=== PATIENT | female | born 1990 | race African-American/Black ===

== ENCOUNTER 2017-07-27 18:07 | Emergency (ER) | payer OTHER, MEDICAID, SELFPAY ==
[2017-07-27 18:10] VITALS: BP 145/85; PULSE 87; RESP 20; TEMP 37.1; O2SAT 100; BMI 46.0
--- NOTE | 2017-07-27 20:11 | ED_ITS ---
HPI - Burn/Smoke Inhalation General Chief complaint: Burn/Smoke Inhalation Stated complaint: BURN RIGHT FOOT Time Seen by Provider: 07/27/17 19:00 Source: patient Mode of arrival: ambulatory Limitations: no limitations History of Present Illness HPI Narrative: 27-year-old female here for evaluation the burn on the top of her right foot. Patient states that yesterday she spilled some hot grease from cooking on the top of her foot. She was wearing a sock at that time. States that afterwards she cleaned off the or oil. She did have some Silvadene cream and Neosporin cream at home that she put on top of it. She states that she has no pain actually some numbness when she is sitting and has her foot elevated however does have problems with walking. States that she had some swelling and redness surrounding the area over the past 6 hr. She states that the blister that formed over the area popped earlier today. Related Data Previous Rx's Medication Instructions Recorded etonogestrel-ethinyl estradiol 1 icr VAGINAL SEE INSTRUCTIONS #4 08/20/16 [NuvaRing] ea lamotrigine [Lamictal] 100 mg PO BID #60 tab 03/12/17 risperidone [Risperdal] 2 mg PO HS #30 tab 04/26/17 bupropion HCl 300 mg PO QDAY #30 tab 05/24/17 dextroamphetamine-amphetamine 10 mg PO QAM #30 cap 05/24/17 [Adderall XR] dextroamphetamine-amphetamine 10 mg PO QAM #30 cap 05/24/17 [Adderall XR] fluconazole 100 mg tablet 200 mg PO ONCE #2 tab 07/16/17 cephalexin [Keflex] 500 mg PO Q12H 7 Days #14 cap 07/27/17 hydrocodone-acetaminophen [Marshall] 1 tab PO Q4-6H PRN #10 tab 07/27/17 Allergies Allergy/AdvReac Type Severity Reaction Status Date / Time No Known Allergies Allergy Uncoded 05/29/17 12:57 Review of Systems Constitutional Denies chills, Denies fever(s), Denies lethargy and Denies weakness Musculoskeletal Comments: Burn to the top of the right foot Integumentary/Breasts Comments: Burn to the top of the right foot Neurologic Denies weakness Comments: Pain, tingling, numbness to her right foot depending on position Hematologic/Lymphatic Denies easy bruising [facility] Surgical History Status post delivery (06/04/07) Status post delivery (06/08/11) Status post delivery (09/10/14) Social History Smoking Status: Never smoker Exam Initial Vital Signs Initial Vital Signs: Vital Signs Temperature 98.7 F 07/27/17 18:10 Pulse Rate 87 07/27/17 18:10 Respiratory Rate 20 07/27/17 18:10 Blood Pressure 145/85 H 07/27/17 18:10 Pulse Oximetry 100 07/27/17 18:10 Const General: cooperative and well developed Nutritional Appearance: well nourished Orientation: alert, awake, oriented x3 and not confused Skin Other: Patient with a 6 cm x 3 cm burn to the top of the right foot that has a popped blister, white underneath. No deep structures seen. Has another 1 cm round blister just medial to this section. Also has redness and swelling over the entire dorsum of the right foot not including the toes. Tender to touch warm to touch. Neuro Other: Sensation intact to light touch right lower extremity Extrem Other: Right ankle unremarkable See skin section for description of burn on right foot Right toes unremarkable Course Orders Ordered: Discontinued Medications Ibuprofen (Advil) 800 mg PO NOW ONE Stop: 07/27/17 20:11 Last Admin: 07/27/17 20:13 Dose: 800 mg Silver Sulfadiazine (Silvadene) 1 applic TOP NOW ONE Stop: 07/27/17 20:14 Vital Signs - 8 hr 07/27/17 18:10 Temperature 98.7 F Pulse Rate 87 Respiratory Rate 20 Blood Pressure 145/85 H Pulse Oximetry 100 MDM - Burn/Smoke Inhalation MDM Narrative Medical decision making narrative: Patient with a less than 1% total body surface area burn to the top of the right foot. Patient is up-to-date on her tetanus. The burn was cleaned here in the emergency department and Silvadene was placed over top of it. Patient was given dressing supplies. The redness was outlined on the top of her foot. Will send home with pain medication and antibiotics. Patient was given return precautions. She will call her primary doctor on [place] for follow-up. She expressed understanding and agreement with plan Discharge Plan Departure Patient Disposition: Home, Self-Care Clinical Impression: Burn Instructions: How to Take Care of a Burn Activity Restrictions/Additional Instructions: Take all the medications as instructed. Call your primary doctor on Saturday for a follow-up. Keep the wound clean. You can shower in use open water like normal however do not soak her foot and anything. Change the dressings like we discussed. Return to the emergency department for any new symptoms, worsening pain, redness that extends outside of the line that we leticia here in the emergency department. Or any other new or worsening symptoms. Prescriptions: New hydrocodone-acetaminophen [Marshall] 5-325 mg tablet 1 tab PO Q4-6H PRN (Reason: pain) Qty: 10 RF: 0 cephalexin [Keflex] 500 mg capsule 500 mg PO Q12H 7 Days Qty: 14 RF: 0 No Action etonogestrel-ethinyl estradiol [NuvaRing] 1 EACH ring 1 icr Vaginal SEE INSTRUCTIONS Qty: 4 RF: 5 lamotrigine [Lamictal] 100 MG tablet 100 mg PO BID Qty: 60 RF: 3 risperidone [Risperdal] 2 MG tablet 2 mg PO HS Qty: 30 RF: 1 bupropion HCl 300 MG tablet extended release 24 hr 300 mg PO QDAY Qty: 30 RF: 1 dextroamphetamine-amphetamine [Adderall XR] 10 MG capsule,extended release 24hr 10 mg PO QAM Qty: 30 RF: 0 dextroamphetamine-amphetamine [Adderall XR] 10 MG capsule,extended release 24hr 10 mg PO QAM Qty: 30 RF: 0 fluconazole [Diflucan] 100 mg tablet 200 mg PO ONCE Qty: 2 RF: 0 Stand Alone Forms: Work/School Restrictions
[2017-07-27] MEDS: IBUPROFEN 400 MG TABLET 800 MG PO (20:13)
[2017-07-27] MEDS: SILVER SULFADIAZINE 1% CREAM 400 GM 1 APPLIC TOP (20:30)
[2017-07-27] MEDS: cephALEXin 250 MG CAPSULE 500 MG PO (20:31)
[2017-07-27] MEDS: HYDROCODONE/ACET 5/325 PREPACK 1 BOTTLE MISC (20:40)
[2017-07-27 20:42] VITALS: BP 138/70; PULSE 70; RESP 14; O2SAT 99
== END 2017-07-27 21:00 | disposition home or self-care (01) ==
PROVIDERS: Emergency Provider Emergency Medicine
DX: T25.021A Burn of unspecified degree of right foot, initial encounter (principal); T30.0 Burn of unspecified body region, unspecified degree; X10.2XXA Contact with fats and cooking oils, initial encounter
CPT/HCPCS: 16020; 99282; 99283

== ENCOUNTER → 2017-08-01 13:04 | Outpatient (CLI) | payer OTHER, SELFPAY ==
--- NOTE | 2017-08-01 | OV.WND_ITS ---
Progress Note Details Patient Name: Leandra Zhang Patient Number: [id number] PatientPatientDate: 08/01/2017 Clinician: Rema Alvarado Clinician Cosigner: Allison Enamorado Physician / Compressor Mechanic: Neymar Ferrell SUBJECTIVE Chief Complaint This information was obtained from the patient Burned foot one week ago July 25, 2017 while cooking, grease. Allergies NKDA HPI This information was obtained from the patient 08/01/17. Seen by Dr. Ferrell. The patient's new to our clinic and presents with a burn over the dorsum of the right foot that occurred 6 days ago when she spilled hot cooking oil. She was seen in the ER 3 days later and started on Keflex for cellulitis of the foot and she feels the pain and swelling have decreased since then. She's also allowed the foot to soak in the bath tub and she does not have a history of diabetes. Family History This information was obtained from the patient Cancer - No History, Diabetes - No History, Heart Disease - No History, Hereditary Spherocytosis - No History, Hypertension - No History, Kidney Disease - No History, Lung Disease - No History, Mental Illness - No History, Non-contributory - No History , None - No History, Other - No History, Seizures - No History, Stroke - No History, Thyroid Problems - No History, Tuberculosis - No History Social History This information was obtained from the patient Caffeine Use - every day, Children - 3, Illicit Drug Use - weed, Lives in - Home with spouse. Past Medical History This information was obtained from the patient, chart Patient has a medical history of: Bi-Polar Disorder Surgical History This information was obtained from the patient Patient has a surgical history of: Deliveries (2007,2011,2014) Complaints and Symptoms This information was obtained from the patient Patient complains of: General Notes: I have reviewed and concur with the Review of Systems and Past Family Social History documents completed by the clinician, I have reviewed and concur with the Wound Assessment document completed by the clinician Medications dextroamphetamine-amphetamine 10 mg tablet oral tablet oral once daily lamotrigine 100 mg tablet oral tablet oral twice daily fluconazole 200 mg tablet oral tablet oral once daily risperidone 2 mg tablet oral tablet oral take at bedtime Keflex 500 mg capsule oral capsule oral twice daily etonogestrel-ethinyl estradiol 0.12 mg -0.015 mg/24 hr vaginal ring vaginal ring vaginal hydrocodone 2.5 mg-acetaminophen 325 mg tablet oral tablet oral every 6 hours as needed bupropion HCl XL 300 mg 24 hr tablet, extended release oral tablet extended release 24 hr oral once daily OBJECTIVE Constitutional Vital signs reviewed and noted. Well developed. Alert. Clean appearing.. Height/ Length: 64 in (162.56 cm), Weight: 296.3 lbs (134.68 kgs), BMI: 50.9, Temperature: 96.8 ?F ( 36 ?C), Pulse: 82 bpm, Respiratory Rate: 18 breaths/min, Blood Pressure: 105/73 mmHg, Pulse Oximetry: 100 %. Ears, Nose, Mouth, and Throat: No clinically significant hearing loss on informal examination. Musculoskeletal: Right foot minimally swollen. Integumentary (Hair, Skin) Mild periwound erythema with warmth. Refer to appropriate clinician wound documentation for this visit; right dorsal foot burn extends to subcut with approx 50% covered with dry, yellow eschar; tender throughout upon debridement. Wound #1 Right, Dorsal Foot is an acute Full Thickness Burn, thermal and has received a status of Not Healed. Initial wound encounter measurements are 3.2cm length x 6.5cm width x 0.3cm depth, with an area of 20.8 sq cm and a volume of 6.24 cubic cm. No tunneling has been noted. No sinus tract has been noted. No undermining has been noted. There is a moderate amount of serous drainage noted which has no odor. The patient reports a wound pain of level 5/10. The wound margin is attached. Wound bed has No epithelialization, No eschar, Yes slough, Yes pink, firm granulation. The periwound skin texture is normal. The periwound skin moisture is normal. The periwound skin color is normal. The temperature of the periwound skin is Warm. Periwound skin presents with s/s of infection. Confirmation Description and Treatment Plan is: Signs and Symptoms Present. Local Pulse is Palpable. Neurological: Cranial nerves grossly intact with symmetric function normal by informal observation.. ASSESSMENT Active Problems ICD-10 (Encounter Diagnosis) T25.221D - Burn of second degree of right foot, subsequent encounter (Encounter Diagnosis) L03.115 - Cellulitis of right lower limb PROCEDURES Wound #1 Wound #1 (Burn, thermal) is located on the right, dorsal foot. A skin/ subcutaneous tissue level surgical debridement with a total area debrided of 20.8 sq cm was performed by Neymar Ferrell MD. Subcutaneous was removed along with devitalized tissue: exudate and slough. The following instrument(s) were used: curette, forceps, and scissors. Pain control was achieved using 4% Lido. A time out was conducted prior to the start of the procedure. No bleeding occurred. The procedure was tolerated well with a pain level of 8 throughout and a pain level of 2 following the procedure. Post Debridement Measurements: 3.2cm length x 6.5cm width x 0.3cm depth; with an area of 20.8 sq cm and a volume of 6.24 cubic cm; PLAN Wound Orders: Wound #1 Right, Dorsal Foot Cleanser Cleanse Wound: - With Normal Saline or distilled water. Dressings Pack wound: - Triple antibiotic ointment. Cover and secure with: - Foam. Change Dressing: - Daily. Follow-Up Appointments Return Appointment: - - Saturday, August 05 Scribing Attestation I attest, as the nurse, that I scribed these orders for the physician. I've reviewed the clinician's documentation and agree with the evaluation and plan as written. In addition the patient's burn demonstrates evidence of non-viable devitalized tissue which will continue to benefit from sharp debridement to help promote granulation and expedite healing. Also, I've taken a wound culture and will adjust antibiotics pending the culture results. She'll otherwise continue on Keflex to treat cellulitis of the right foot and abstain from soaking the foot. 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 Electronic Signature(s) Signed By: Date: Neymar Ferrell MD 08/02/2017 08:42:30 Entered By: Neymar Ferrell on 08/02/2017 08:39:11
== END ==
PROVIDERS: PCP Internal Medicine; Visit Provider Internal Medicine
DX: T25.221A Burn of second degree of right foot, initial encounter (principal); L03.115 Cellulitis of right lower limb
CPT/HCPCS: 16020; 87070; 87075; 87205; 99213

== ENCOUNTER → 2017-08-05 09:39 | Outpatient (CLI) | payer OTHER, MEDICAID, SELFPAY ==
--- NOTE | 2017-08-05 | OV.WND_ITS ---
Progress Note Details Patient Name: Leandra Zhang Patient Number: [id number] PatientPatientDate: 08/05/2017 Clinician: Ami Degroot Clinician Cosigner: Allison Enamorado Physician / Motor Equipment Captain: Neymar Ferrell SUBJECTIVE Chief Complaint This information was obtained from the patient Burned foot one week ago July 25, 2017 while cooking, grease. Allergies NKDA HPI This information was obtained from the patient 08/05/17. Seen by Dr. Ferrell. The patient reports some persistent pain associated with the right foot burn however feels the periwound redness and swelling have decreased since completing her course of Keflex. 08/01/17. Seen by Dr. Ferrell. The patient's new to our clinic and presents with a burn over the dorsum of the right foot that occurred 6 days ago when she spilled hot cooking oil. She was seen in the ER 3 days later and started on Keflex for cellulitis of the foot and she feels the pain and swelling have decreased since then. She's also allowed the foot to soak in the bath tub and she does not have a history of diabetes. Past Medical History This information was obtained from the patient, chart Patient has a medical history of: Bi-Polar Disorder Complaints and Symptoms This information was obtained from the patient Patient complains of: General Notes: I have reviewed and concur with the Review of Systems and Past Family Social History documents completed by the clinician, I have reviewed and concur with the Wound Assessment document completed by the clinician Integumentary (Hair/Skin/Nails): Open Sore Prior Wound History: Drainage, Erythema, Pain Patient denies complaints or symptoms related to: Constitutional Symptoms (General Health): Chills, Fever Ear/Nose/Mouth/Throat: Hearing Loss / Aid Gastrointestinal (GI): Stomach/abdominal pain Hematologic/Lymphatic: Bleeding / Clotting Disorders, Bleeding Tendency Neurological: Loss of Protective Sensation OBJECTIVE Constitutional Vital signs reviewed and noted. Well developed. Alert. Clean appearing.. Height/ Length: 64 in (162.56 cm), Weight: 296.3 lbs (134.68 kgs), BMI: 50.9, Temperature: 97.7 ?F ( 36.5 ?C), Pulse: 73 bpm, Respiratory Rate: 18 breaths/min, Blood Pressure: 128/82 mmHg, Pulse Oximetry: 100 %. Ears, Nose, Mouth, and Throat: No clinically significant hearing loss on informal examination. Respiratory: No respiratory distress. Even respirations and without use of accessory muscles.. Cardiovascular: Affected extremity exhibits no peripheral edema or cyanosis, is warm, and is well perfused. Capillary refill is less than 2 seconds. Integumentary (Hair, Skin) No periwound erythema, warmth, or significant drainage. No periwound rashes appreciated or noted otherwise.. Refer to appropriate clinician wound documentation for this visit; right foot wound extends to subcut with base partially covered with pink granulation, remainder dry fibrin and slough. Wound #1 Right, Dorsal Foot is an acute Full Thickness Burn, thermal and has received a status of Not Healed. Subsequent wound encounter measurements are 6.3cm length x 1.6cm width x 0.1cm depth, with an area of 10.08 sq cm and a volume of 1.008 cubic cm. No tunneling has been noted. No sinus tract has been noted. No undermining has been noted. There is a moderate amount of serous drainage noted which has no odor. The patient reports a wound pain of level 5/10. The wound margin is attached. Wound bed has Yes epithelialization, No eschar, Yes slough, Yes bright red, pink, firm granulation. The periwound skin texture is normal. The periwound skin moisture is normal. The periwound skin color is normal. The temperature of the periwound skin is Warm. Periwound skin does not exhibit signs or symptoms of infection. Local Pulse is Palpable. Neurological: Cranial nerves grossly intact with symmetric function normal by informal observation.. ASSESSMENT Active Problems ICD-10 (Encounter Diagnosis) T25.221D - Burn of second degree of right foot, subsequent encounter PROCEDURES Wound #1 Wound #1 (Burn, thermal) is located on the right, dorsal foot. A skin/ subcutaneous tissue level surgical debridement with a total area debrided of 10.08 sq cm was performed by Neymar Ferrell MD. Subcutaneous was removed along with devitalized tissue: exudate and slough. The following instrument(s) were used: curette, forceps, and scissors. Pain control was achieved using 4% Lido. A time out was conducted prior to the start of the procedure. A minimal amount of bleeding was controlled with n/a. The procedure was tolerated well with a pain level of 0 throughout and a pain level of 0 following the procedure. Post Debridement Measurements: 6.3cm length x 1.6cm width x 0.2cm depth; with an area of 10.08 sq cm and a volume of 2.016 cubic cm; Additional Information Muscle fascia or bone removed and sent to pathology?: No PLAN Wound Orders: Wound #1 Right, Dorsal Foot Cleanser Cleanse Wound: - With Normal Saline or distilled water. Dressings Pack wound: - Muller gel Cover and secure with: - Telfa guaze and tape Change Dressing: - Every other day Follow-Up Appointments Return Appointment: - - One week Other information: If you develop fever, chills, increased pain, drainage, redness or swelling please call our office. If after hours, respond to the ER. Should you experience any significant changes in your wound(s) or have any questions regarding your home care instructions please contact the wound center @ [phone]. If after hours, contact your primary care physician or go to the hospital emergency room. Scribing Attestation I attest, as the nurse, that I scribed these orders for the physician. I've reviewed the clinician's documentation and agree with the evaluation and plan as written. In addition the patient's wound demonstrates evidence of non-viable devitalized tissue which will continue to benefit from sharp debridement to help promote granulation and expedite healing. Also, the burn appear a bit dry today so I've changed to using topical hydrogel to help better facilitate debridement at her next visit. Electronic Signature(s) Signed By: Date: Neymar Ferrell MD 08/05/2017 14:41:04 Entered By: Neymar Ferrell on 08/05/2017 12:05:01
== END ==
PROVIDERS: PCP Family Medicine; Referring Provider Internal Medicine; Visit Provider Internal Medicine
DX: T25.221A Burn of second degree of right foot, initial encounter (principal)
CPT/HCPCS: 16020

== ENCOUNTER 2018-09-22 09:57 | Emergency (ER) | payer OTHER, MEDICAID, SELFPAY ==
--- NOTE | 2018-09-22 10:10 | DI.US.S_ITS ---
PROCEDURE: US OB <= 14 WEEKS FETUS INDICATIONS: 6 WEEKS , BLEEDING OUTSIDE/PRIOR DATING DATA: Last menstrual period (LMP): 07/24/2018. LMP-based estimated date of delivery (ANG): 05/20/2019. First dating scan (date and location): n.a. Estimated date of delivery (ANG) from first dating scan: n.a. TECHNIQUE: Real-time scanning was performed of the fetus and maternal pelvic organs, with image documentation. Endovaginal scanning was also performed to better visualize the fetus and maternal ovaries. COMPARISON: None. FINDINGS: No intrauterine gestational sac is identified. Uterus is normal in size. Endometrium measures 11.4 mm in thickness. Measurement variability in dating: +/- 4 weeks by LMP, +/- 7 days by mean sac diameter (use before 6 weeks gestation if crown-rump length not able to be measured), +/- 5 days by crown-rump length (up to 8 weeks 6 days gestation), +/- 7 days by crown-rump length (up to 13 weeks 6 days gestation). Maternal organs: Ovaries are grossly normal. There is a 1.8 x 1.5 x 1.5 cm mildly complex cyst in the right ovary. Limited images through the kidneys demonstrate no hydronephrosis. IMPRESSION: 1. Intrauterine is identified. 2. No definitive ectopic . Recommend correlation with sequential quantity of serum beta-hCG and followup imaging if clinically indicated. 3. A 1.8 x 1.5 x 1.5 cm mildly complex cyst in the right ovary. Dictated by: Cynthia Tracey M.D. on 09/22/2018 at 11:22 Approved by: Cynthia Tracey M.D. on 09/22/2018 at 11:30
[2018-09-22 10:11] VITALS: BP 130/76; PULSE 99; RESP 15
[2018-09-22 10:26] LABS: Bacteria Urine None Seen
[2018-09-22 10:41] LABS: Add Manual Diff / Slide Review NO; Basophils Absolute Auto 0 /uL (0-100); Basophils Percent Auto 0.7 % (0-2); Eosinophils Absolute Auto 200 /uL (0-450); Eosinophils Percent Auto 3.1 % (2-4); Hematocrit 37.5 % (36-46); Hemoglobin 12.6 g/dL (12.0-16.0); Lymphocytes Absolute Auto 1800 /uL (1100-4500); Lymphocytes Percent Auto 37.3 % (25-40); Mean Corpuscular HGB Conc 33.6 % (30-36); Mean Corpuscular Volume 86.1 fL (80-100); Monocytes Absolute Auto 400 /uL (0-900); Monocytes Percent Auto 7.3 % (3-14); Neutrophils Absolute Auto 2500 /uL (1500-7000); Neutrophils Percent Auto 51.6 % (50-75); Platelet Count 180 X10^3/uL (150-400); Red Blood Cell Count 4.35 X10^6/uL (4.0-5.2); Red Cell Distribution Width 13.6 % (11.6-14.8); White Blood Cell Count 4.9 X10^3/uL (4.5-11.0)
[2018-09-22 10:46] LABS: RBC Urine 5-10/HPF (0-5/HPF); WBC Urine 5-10/HPF (0-5/HPF)
[2018-09-22 10:47] LABS: Culture Indicated Urine Specimen Cultured; Squamous Epithelial Cell Urine 0-1 /HPF (0-5/HPF)
[2018-09-22 10:50] LABS: Alanine Aminotransferase 25 IU/L (9-52); Albumin 4.1 g/dL (3.5-5.0); Albumin Globulin Ratio 1.4 (1.0-2.8); Alkaline Phosphatase 57 U/L (38-126); Aspartate Aminotransferase 24 IU/L (14-36); Bilirubin Total 0.3 mg/dL (0.2-1.3); Blood Urea Nitrogen 12 mg/dL (7-17); Calcium 9.2 mg/dL (8.4-10.2); Carbon Dioxide 23 mmol/L (22-32); Chloride 106 mmol/L (98-107); Estimated Glomerular Filt Rate > 60.0 mL/min (>60); Globulin 2.9 g/dL (1.7-4.1); Glucose 90 mg/dL (70-100); HEMOLYSIS < 15 (0-50); Sodium 139 mmol/L (137-145)
[2018-09-22 11:06] LABS: HCG Quantitative /Beta subunit 41.43 mIU/mL
--- NOTE | 2018-09-22 12:25 | ED_ITS ---
HPI - <SYD LeeP - Last Filed: 09/22/18 22:49> General Chief complaint: Vaginal Bleeding Stated complaint: 6 WEEK PREG/BLEEDING Time Seen by Provider: 09/22/18 11:12 Source: patient Mode of arrival: ambulatory Limitations: no limitations History of Present Illness HPI Narrative: This is 28 year ordered female, nonsmoker, presents with her significant other to ED with chief complain of vaginal spotting which started about 2 hours ago at work. She reports this is her 4th and she has 3 living children delivered by . Her last LMP was08/13/18 and had a positive home test 3 weeks ago. She reports mild low abdominal pressure. She denies any urinary symptoms such as urgency, dysuria. The patient reports some urinary frequency but reports does not feel like UTI. She problems with her 3 previous pregnancies with ruptured placenta or placenta tear, however she was able to carry the you're for term. Date of Last Menstrual Period: 08/13/18 Patient : Yes Related Data Home Medications Medication Instructions Recorded Confirmed PNV cmb#95-ferrous fumarate-FA 1 tab PO DAILY 09/22/18 09/22/18 [] Allergies Allergy/AdvReac Type Severity Reaction Status Date / Time No Known Drug Allergies Allergy Verified 09/22/18 18:53 Review of Systems <SYD LeeP - Last Filed: 09/22/18 22:49> Review of Systems General: Denies fever, chills, fatigue, malaise, sweats. HEENT: Denies sinus pain, ear pain, sore throat, difficulty swallowing, dizziness. Respiratory: Denies dyspnea, cough, wheezing, hemoptysis, sputum. Cardiovascular: Denies chest pain, palpitations, orthopnea, edema. Gastrointestinal: Mild abdominal pressure. Denies nausea, vomiting, diarrhea, constipation, melena. : See HPI Musculoskeletal: Denies weakness, joint pain or bony pain. Skin: Denies rash, skin lesions, or other. Neurologic: Denies weakness, headache, numbness, change in speech, confusion, seizures, incoordination. Psychiatric: No concerning psychosocial issues. 12-point review of systems is negative except for those stated above. PMFSH - <SYD LeeP - Last Filed: 09/22/18 22:49> Past Medical History Surgical history: Reports [employer] history: Reports Other (placental tear, placental rupture) Date of Last Menstrual Period: 08/13/18 Patient : Yes Family history: Reports non-contributory Exam <LINO Lee - Last Filed: 09/22/18 22:49> Narrative Exam Narrative: GEN: Alert, oriented x 3, well appearing and nourished, and in no acute distress. Head: Normal cephalic, atraumatic. No scalp or temporal tenderness, palpable mass or rash. EYES: Pupils are equal, round, and reactive to light and accommodation. Extraocular muscles are intact bilaterally. There is no subconjunctival hemorrhage, exudate and sclera non-icteric. ENT: Bilateral auditory canals and tympanic membranes. Hearing grossly intact. Nose without bleeding, purulent discharge. Mucous membrane moist, no mucosal lesion. Throat without erythema, tonsillar hypertrophy or exudate. Uvula in midline, airway patent. Neck: Trachea in midline. No JVD, non-tender without lymphadenopathy. No masses or thyroid megaly. Supple, non-tender and no meningeal signs. CARDIAC: Normal regular rate and rhythm without murmurs, gallops, or rubs. No chest wall tenderness. No peripheral edema, cyanosis or pallor. Capillary refill is less than 2 seconds. No carotid bruits. RESPIRATORY: Lungs are cleat to auscultate bilaterally. No cough, wheezes, rales, or rhonchi. No stridor, respiratory distress, increase work of breathing, or accessary muscle used. ABD: Abdomen soft, nontender and non-distended. No guarding or rebound tenderness to palpate. Bowel sounds are normal in all 4 quadrants. There is no palpable masses or organomegaly. EXT: Full painless ROM of all extremities with no loss of sensation, strength, effusion or edema. SKIN: Warm, dry, normal color for patient. No erythema, lesions or rash. BACK: Nontender without deformity or crepitance. No flank tenderness. NEUROLOGICAL: Alert and oriented to place, time and person. Sensation and motor function intact bilaterally. No facial droops, dysphasia. PSYCHIATRIC: Good judgement and reason, without hallucinations, abnormal affect or abnormal behaviors during the examination. Initial Vital Signs Initial Vital Signs: Vital Signs Pulse Rate 99 H 09/22/18 10:11 Respiratory Rate 15 09/22/18 10:11 Blood Pressure 130/76 09/22/18 10:11 <Yamila Meeks DO - Last Filed: 09/24/18 17:57> Initial Vital Signs Initial Vital Signs: Vital Signs Pulse Rate 99 H 09/22/18 10:11 Respiratory Rate 15 09/22/18 10:11 Blood Pressure 130/76 09/22/18 10:11 Course <SYD LeeP - Last Filed: 09/22/18 22:49> Orders Ordered: ED Orders 09/22/18 10:10 US OB <= 14 weeks fetus Stat 09/22/18 10:20 Urine Culture Stat Urine Microscopic Stat 09/22/18 10:25 ABO RH Type Stat Complete Blood Count AUTO DIFF Stat Comprehensive Metabolic Panel Stat HCG Quantitative Stat Vital Signs - 8 hr 09/22/18 10:11 Pulse Rate 99 H Respiratory Rate 15 Blood Pressure [Left Arm] 130/76 <Yamila Meeks DO - Last Filed: 09/24/18 17:57> Orders Ordered: ED Orders 09/22/18 10:10 US OB <= 14 weeks fetus Stat 09/22/18 10:20 Urine Culture Stat Urine Microscopic Stat 09/22/18 10:25 ABO RH Type Stat Complete Blood Count AUTO DIFF Stat Comprehensive Metabolic Panel Stat HCG Quantitative Stat Vital Signs - 8 hr 09/22/18 10:11 Pulse Rate 99 H Respiratory Rate 15 Blood Pressure [Left Arm] 130/76 MDM - OB/Uterine Contractions <SYD LeeP - Last Filed: 09/22/18 22:49> Differential Diagnosis Likely other (threatened AB, missed AB, complete AB) Medical Records Attestation: I reviewed the patient's medical records. Lab Data Attestation: I reviewed the patient's lab results. Result diagrams: 09/22/18 10:25 09/22/18 10:25 Lab Results 09/22/18 09/22/18 09/22/18 Range/Units 10:20 10:25 10:25 WBC 4.9 (4.5-11.0) X10^3/uL RBC 4.35 (4.0-5.2) X10^6/uL Hgb 12.6 (12.0-16.0) g/dL Hct 37.5 (36-46) % MCV 86.1 (80-100) fL MCH 29.0 (26-34) PG MCHC 33.6 (30-36) % RDW 13.6 (11.6-14.8) % Plt Count 180 (150-400) X10^3/uL Neut % (Auto) 51.6 (50-75) % Lymph % (Auto) 37.3 (25-40) % Desha % (Auto) 7.3 (3-14) % Eos % (Auto) 3.1 (2-4) % Baso % (Auto) 0.7 (0-2) % Neut # (Auto) 2500 (5824-3576) /uL Lymph # (Auto) 1800 (2271-8286) /uL Desha # (Auto) 400 (0-900) /uL Eos # (Auto) 200 (0-450) /uL Baso # (Auto) 0 (0-100) /uL Sodium 139 (137-145) mmol/L Potassium 4.0 (3.4-5.1) mmol/L Chloride 106 (98-107) mmol/L Carbon Dioxide 23 (22-32) mmol/L BUN 12 (7-17) mg/dL Creatinine 0.50 L (0.52-1.04) mg/dL Estimated GFR > 60.0 (>60) mL/min BUN/Creatinine Ratio 24.0 H (6-22) Glucose 90 (70-100) mg/dL Calcium 9.2 (8.4-10.2) mg/dL Total Bilirubin 0.3 (0.2-1.3) mg/dL AST 24 (14-36) IU/L ALT 25 (9-52) IU/L Alkaline Phosphatase 57 (38-126) U/L Total Protein 7.0 (6.3-8.2) g/dL Albumin 4.1 (3.5-5.0) g/dL Globulin 2.9 (1.7-4.1) g/dL Albumin/Globulin Ratio 1.4 (1.0-2.8) HCG, Quant 41.43 mIU/mL Urine RBC 5-10/hpf H (0-5/HPF) Urine WBC 5-10/hpf H (0-5/HPF) Ur Squamous Epith Cells 0-1 /hpf (0-5/HPF) Urine Bacteria None seen (None) Ur Culture Indicated? Specimen cultured Blood Type 09/22/18 Range/Units 10:25 WBC (4.5-11.0) X10^3/uL RBC (4.0-5.2) X10^6/uL Hgb (12.0-16.0) g/dL Hct (36-46) % MCV (80-100) fL MCH (26-34) PG MCHC (30-36) % RDW (11.6-14.8) % Plt Count (150-400) X10^3/uL Neut % (Auto) (50-75) % Lymph % (Auto) (25-40) % Desha % (Auto) (3-14) % Eos % (Auto) (2-4) % Baso % (Auto) (0-2) % Neut # (Auto) (0859-8045) /uL Lymph # (Auto) (1026-1504) /uL Desha # (Auto) (0-900) /uL Eos # (Auto) (0-450) /uL Baso # (Auto) (0-100) /uL Sodium (137-145) mmol/L Potassium (3.4-5.1) mmol/L Chloride (98-107) mmol/L Carbon Dioxide (22-32) mmol/L BUN (7-17) mg/dL Creatinine (0.52-1.04) mg/dL Estimated GFR (>60) mL/min BUN/Creatinine Ratio (6-22) Glucose (70-100) mg/dL Calcium (8.4-10.2) mg/dL Total Bilirubin (0.2-1.3) mg/dL AST (14-36) IU/L ALT (9-52) IU/L Alkaline Phosphatase (38-126) U/L Total Protein (6.3-8.2) g/dL Albumin (3.5-5.0) g/dL Globulin (1.7-4.1) g/dL Albumin/Globulin Ratio (1.0-2.8) HCG, Quant mIU/mL Urine RBC (0-5/HPF) Urine WBC (0-5/HPF) Ur Squamous Epith Cells (0-5/HPF) Urine Bacteria (None) Ur Culture Indicated? Blood Type B Positive Point of Care Testing Test Results Positive Urine Dip Bedside Urine Glucose Negative Bedside Urine Bilirubin - Negative Bedside Urine Ketone - Negative Urine Specific [place] 1.020 Bedside Urine Occult Blood +++ Bedside Urine pH 5.5 Bedside Urine Protein +/- 15 Bedside Urine Urobilinogen - Negative Bedside Urine Nitrite - Negative Bedside Urine Leukocytes - Negative Esterase Imaging Data US-pelvic: Radiologist's impression: Leandra Zhang 28 F 1990 [place] [address] Ultrasound Report Addendum Patient: Leandra Zhang LMR#: [id number] : 1990Acct:[id number] Age/Sex: 28 / FDate of Service: 09/22/18 Loc: ED Accession Number: [id number] Procedure: US OB <= 14 weeks fetus Ordering Provider: Indira Townsend D.O. ADDENDUM This report includes an Addendum and supersedes previous reports for this exam. PROCEDURE: US OB <= 14 WEEKS FETUS INDICATIONS: 6 WEEKS , BLEEDING OUTSIDE/PRIOR DATING DATA: Last menstrual period (LMP): 07/24/2018. LMP-based estimated date of delivery (ANG): 05/20/2019. First dating scan (date and location): n.a. Estimated date of delivery (ANG) from first dating scan: n.a. TECHNIQUE: Real-time scanning was performed of the fetus and maternal pelvic organs, with image documentation. Endovaginal scanning was also performed to better visualize the fetus and maternal ovaries. COMPARISON: None. FINDINGS: No intrauterine gestational sac is identified. Uterus is normal in size. Endometrium measures 11.4 mm in thickness. Measurement variability in dating: +/- 4 weeks by LMP, +/- 7 days by mean sac diameter (use before 6 weeks gestation if crown-rump length not able to be measured), +/- 5 days by crown-rump length (up to 8 weeks 6 days gestation), +/- 7 days by crown-rump length (up to 13 weeks 6 days gestation). Maternal organs: Ovaries are grossly normal. There is a 1.8 x 1.5 x 1.5 cm mildly complex cyst in the right ovary. Limited images through the kidneys demonstrate no hydronephrosis. IMPRESSION: 1. No intrauterine is identified. 2. No definitive ectopic . Recommend correlation with sequential quantity of serum beta-hCG and followup imaging if clinically indicated. 3. A 1.8 x 1.5 x 1.5 cm mildly complex cyst in the right ovary. Dictated by: Cynthia Tracey M.D. on 09/22/2018 at 11:22 Approved by: Cynthia Tracey M.D. on 09/22/2018 at 11:30 ADDENDUM: Typograophic error(s) corrected (underlined) in impression #1. Dictated by: Cynthia Tracey M.D. on 09/22/2018 at 12:05 Approved by: Cynthia Tracey M.D. on 09/22/2018 at 12:06 Addendum Dictated By:Laina Tracey MD Addendum Signed By: Addendum Cosigned By: DD/ /06/1208 TD/TT: 09/22/1807/06/1208 PROCEDURE: US OB <= 14 WEEKS FETUS INDICATIONS: 6 WEEKS , BLEEDING OUTSIDE/PRIOR DATING DATA: Last menstrual period (LMP): 07/24/2018. LMP-based estimated date of delivery (ANG): 05/20/2019. First dating scan (date and location): n.a. Estimated date of delivery (ANG) from first dating scan: n.a. TECHNIQUE: Real-time scanning was performed of the fetus and maternal pelvic organs, with image documentation. Endovaginal scanning was also performed to better visualize the fetus and maternal ovaries. COMPARISON: None. FINDINGS: No intrauterine gestational sac is identified. Uterus is normal in size. Endometrium measures 11.4 mm in thickness. Measurement variability in dating: +/- 4 weeks by LMP, +/- 7 days by mean sac diameter (use before 6 weeks gestation if crown-rump length not able to be measured), +/- 5 days by crown-rump length (up to 8 weeks 6 days gestation), +/- 7 days by crown-rump length (up to 13 weeks 6 days gestation). Maternal organs: Ovaries are grossly normal. There is a 1.8 x 1.5 x 1.5 cm mildly complex cyst in the right ovary. Limited images through the kidneys demonstrate no hydronephrosis. IMPRESSION: 1. Intrauterine is identified. 2. No definitive ectopic . Recommend correlation with sequential quantity of serum beta-hCG and followup imaging if clinically indicated. 3. A 1.8 x 1.5 x 1.5 cm mildly complex cyst in the right ovary. Dictated by: Cynthia Tracey M.D. on 09/22/2018 at 11:22 Approved by: Cynthia Tracey M.D. on 09/22/2018 at 11:[address] [facility] Narrative Medical decision making narrative: This is a 28 year female presents with her son significant other with chief complaining of vaginal spotting which started 2 hours ago. Last LMP was 08/13/18 and had positive home test about 3 weeks ago. She is with x 3. She reports had high risk pregnancies with placenta care and placenta rupture. She reports having urinary frequency but reports does not feel like UTI. She had not seen OB provider at this time. She is trying to re-establish care with Dr. Claros. She current he does not have primary care physician CC is Dr. Lee left [facility]. The urine test does not indicates negative for nitrite, leukocytes esterase. It showed 3+ occult blood in urine. Her urine is being cultured time. The patient's blood type is B-positive. The serum hCG was 41.43 which is very low for the expected gestational age. ultrasound was obtained and no IUP was seen. No intrauterine gestational sac was identified. There was no definitive ectopic . Incidental finding of a 1.8x 1.5x 1.5 cm mildly complex cyst in the right ovary. Dr. Wang was consulted over the phone call, he suggested repeat serum HCG test in 3 days by calling his clinic and to make an appointment. The findings were discussed with patient and significant other at bedside and all questions were answered. Patient was in tears during this discussion. Patient advised to remain pelvic rest until she is cleared by OB specialist. Return precautions informed to patient. Work off note has been provided for 2 days. Patient agrees with the treatment plan. <Yamila Meeks, DO - Last Filed: 09/24/18 17:57> Lab Data Lab Results 09/22/18 09/22/18 09/22/18 Range/Units 10:20 10:25 10:25 WBC 4.9 (4.5-11.0) X10^3/uL RBC 4.35 (4.0-5.2) X10^6/uL Hgb 12.6 (12.0-16.0) g/dL Hct 37.5 (36-46) % MCV 86.1 (80-100) fL MCH 29.0 (26-34) PG MCHC 33.6 (30-36) % RDW 13.6 (11.6-14.8) % Plt Count 180 (150-400) X10^3/uL Neut % (Auto) 51.6 (50-75) % Lymph % (Auto) 37.3 (25-40) % Desha % (Auto) 7.3 (3-14) % Eos % (Auto) 3.1 (2-4) % Baso % (Auto) 0.7 (0-2) % Neut # (Auto) 2500 (7810-4929) /uL Lymph # (Auto) 1800 (4032-0678) /uL Desha # (Auto) 400 (0-900) /uL Eos # (Auto) 200 (0-450) /uL Baso # (Auto) 0 (0-100) /uL Sodium 139 (137-145) mmol/L Potassium 4.0 (3.4-5.1) mmol/L Chloride 106 (98-107) mmol/L Carbon Dioxide 23 (22-32) mmol/L BUN 12 (7-17) mg/dL Creatinine 0.50 L (0.52-1.04) mg/dL Estimated GFR > 60.0 (>60) mL/min BUN/Creatinine Ratio 24.0 H (6-22) Glucose 90 (70-100) mg/dL Calcium 9.2 (8.4-10.2) mg/dL Total Bilirubin 0.3 (0.2-1.3) mg/dL AST 24 (14-36) IU/L ALT 25 (9-52) IU/L Alkaline Phosphatase 57 (38-126) U/L Total Protein 7.0 (6.3-8.2) g/dL Albumin 4.1 (3.5-5.0) g/dL Globulin 2.9 (1.7-4.1) g/dL Albumin/Globulin Ratio 1.4 (1.0-2.8) HCG, Quant 41.43 mIU/mL Urine RBC 5-10/hpf H (0-5/HPF) Urine WBC 5-10/hpf H (0-5/HPF) Ur Squamous Epith Cells 0-1 /hpf (0-5/HPF) Urine Bacteria None seen (None) Ur Culture Indicated? Specimen cultured Blood Type 09/22/18 Range/Units 10:25 WBC (4.5-11.0) X10^3/uL RBC (4.0-5.2) X10^6/uL Hgb (12.0-16.0) g/dL Hct (36-46) % MCV (80-100) fL MCH (26-34) PG MCHC (30-36) % RDW (11.6-14.8) % Plt Count (150-400) X10^3/uL Neut % (Auto) (50-75) % Lymph % (Auto) (25-40) % Desha % (Auto) (3-14) % Eos % (Auto) (2-4) % Baso % (Auto) (0-2) % Neut # (Auto) (9755-7262) /uL Lymph # (Auto) (3940-0733) /uL Desha # (Auto) (0-900) /uL Eos # (Auto) (0-450) /uL Baso # (Auto) (0-100) /uL Sodium (137-145) mmol/L Potassium (3.4-5.1) mmol/L Chloride (98-107) mmol/L Carbon Dioxide (22-32) mmol/L BUN (7-17) mg/dL Creatinine (0.52-1.04) mg/dL Estimated GFR (>60) mL/min BUN/Creatinine Ratio (6-22) Glucose (70-100) mg/dL Calcium (8.4-10.2) mg/dL Total Bilirubin (0.2-1.3) mg/dL AST (14-36) IU/L ALT (9-52) IU/L Alkaline Phosphatase (38-126) U/L Total Protein (6.3-8.2) g/dL Albumin (3.5-5.0) g/dL Globulin (1.7-4.1) g/dL Albumin/Globulin Ratio (1.0-2.8) HCG, Quant mIU/mL Urine RBC (0-5/HPF) Urine WBC (0-5/HPF) Ur Squamous Epith Cells (0-5/HPF) Urine Bacteria (None) Ur Culture Indicated? Blood Type B Positive Point of Care Testing Test Results Positive Urine Dip Bedside Urine Glucose Negative Bedside Urine Bilirubin - Negative Bedside Urine Ketone - Negative Urine Specific [place] 1.020 Bedside Urine Occult Blood +++ Bedside Urine pH 5.5 Bedside Urine Protein +/- 15 Bedside Urine Urobilinogen - Negative Bedside Urine Nitrite - Negative Bedside Urine Leukocytes - Negative Esterase Discharge Plan Departure Patient Disposition: Home Clinical Impression: Vaginal bleeding in patient at less than 20 weeks gestation Discharge Date/Time: 09/22/18 12:50 Interventions: ED Discharge Assessment Last Done: 09/22/18 12:49 Instructions: DI for Vaginal Bleeding During Activity Restrictions/Additional Instructions: You have been diagnosed with [ vaginal bleeding during early . You're blood test for was lower than expected level. Ultrasound test was done and it does not show IUP at this time. Please follow up with Dr. Claros office in 3 days to repeat you're blood test to look at the trend down hormone]. What to do: *Take your medications as directed. He can take [id number] Tylenol as needed for abdominal cramping or pressure discomfort. *Follow up with DR. Claros's office in 3 days, call for an appointment. Let them know you were seen in the ED and that we asked you to be seen in follow up. *Return to ED if you have any new, worsening, or concerning symptoms, such as [severe abdominal pain, unable to tolerate fluids, fever, chills, heavy vaginal bleeding, chest pain, difficulty breathing, any acute concerns]. Prescriptions: No Action PNV cmb#95-ferrous fumarate-FA [] 28 mg iron- 800 mcg Tablet 1 tab PO DAILY RF: 0 Referrals: Celine Claros MD [Physician] - Stand Alone Forms: Work Release Note <Yamila Meeks DO - Last Filed: 09/24/18 17:57> Cosign ED Attending Cosignature Attestation: I was immediately available in the department for consultation, case discussed. Plan for follow up with interdisciplinary professor for recheck and serial hcg testing. This documentation has been reviewed and I agree with assessment and plan. Supervised by Yamila Meeks DO
[2018-09-22 12:35] VITALS: BP 125/75; PULSE 72; RESP 17; O2SAT 100
== END 2018-09-22 12:50 | disposition home or self-care (01) ==
PROVIDERS: Emergency Medicine; Emergency Provider Nurse Practitioner Family
DX: O20.9 Hemorrhage in early pregnancy, unspecified (principal); Z3A.01 Less than 8 weeks gestation of pregnancy
CPT/HCPCS: 36415; 76801; 76817; 80053; 81003; 81015; 81025; 84702; 85014; 85018; 85025; 86900; 86901; 87086; 99282; 99283; 99284

== ENCOUNTER 2018-09-22 18:51 | Emergency (ER) | payer OTHER, MEDICAID, SELFPAY ==
[2018-09-22 18:54] VITALS: BP 140/85; PULSE 88; RESP 22; TEMP 37.3; O2SAT 98; BMI 44.6
[2018-09-22 21:09] LABS: Hematocrit 39.9 % (36-46); Hemoglobin 13.1 g/dL (12.0-16.0)
[2018-09-22 21:56] VITALS: BP 126/77; PULSE 85; RESP 16; O2SAT 100
--- NOTE | 2018-09-23 05:29 | ED.PREGNANCY ---
HPI - General Chief complaint: Vaginal Bleeding Stated complaint: 6 WKS BLEEDING CRAMPING Time Seen by Provider: 09/22/18 20:29 Source: patient and family Mode of arrival: ambulatory Limitations: no limitations History of Present Illness HPI Narrative: 28-year-old female nonsmoker is a at 6 weeks who returns for the 2nd time today. Earlier she was seen for evaluation some mild cramping and spotting. Her HCG was quite low at 40 an ultrasound had no significant findings. She was given return precautions and decided to return when her cramping intensified and she passed a few clots. She has not yet saturated a pad which she has been wearing for 4 hours. She is not dizzy or weak or lightheaded. She denies fever or chills. MD Complaint: vaginal bleeding Onset (ago): hour(s) Pain Consistency: intermittent Location: pelvis Severity: mild Quality: Aching Relieving factors: none Exacerbating factors: none Vaginal bleeding: light Patient : Yes OB History - Current : no complications OB History - Previous Pregnancies: no complications care: none Related Data Home Medications Medication Instructions Recorded Confirmed PNV cmb#95-ferrous fumarate-FA 1 tab PO DAILY 09/22/18 09/22/18 [] Allergies Allergy/AdvReac Type Severity Reaction Status Date / Time No Known Drug Allergies Allergy Verified 09/22/18 18:53 Review of Systems Constitutional Denies chills, Denies fever(s), Denies lethargy and Denies weakness Eyes Denies change in vision, Denies eye discharge, Denies irritation and Denies loss of vision ENT Ears, Nose, Mouth, and Throat: Denies change in voice, Denies neck pain and Denies sore throat Cardiovascular Denies chest pain, Denies irregular heart rhythm, Denies lightheadedness, Denies palpitations, Denies dyspnea, Denies dyspnea on exertion and Denies orthopnea Respiratory Denies cough, Denies dyspnea, Denies dyspnea on exertion and Denies wheezing Gastrointestinal Gastrointestinal: Denies abdominal pain, Denies change in bowel habits, Denies diarrhea, Denies nausea and Denies vomiting Genitourinary Reports abnormal vaginal bleeding, Denies hematuria, Denies flank pain, Denies urinary incontinence and Denies urinary urgency Musculoskeletal Denies neck pain Integumentary/Breasts Denies pruritus, Denies erythema, Denies rash and Denies wounds Neurologic Denies confusion, Denies loss of vision and Denies weakness Psychiatric Denies anxiety, Denies confusion, Denies depression, Denies homicidal ideation and Denies suicidal ideation Endocrine Denies palpitations Hematologic/Lymphatic Denies easy bruising Allergic/Immunologic Denies wheezing PMFSH - Past Medical History Surgical history: Reports Patient : Yes Family history: Reports non-contributory Exam Narrative Exam Narrative: GEN: AOx3 and in mild distress EYES: Pupils are equal, round, and reactive to light and accommodation. Extraoccular muscles are intact bilaterally. There is no subconjunctival hemorrhage or exudate. CHEST: Lungs are clear to auscultation bilaterally and free of wheezes, rales, or rhonchi. Heart rate is regular rhythm, there are no murmurs, clicks, rubs, or gallops. There is no chest wall tenderness. ABD: Abdomen is soft and nontender. There is no guarding or rebound. Bowel sounds are normal in all 4 quadrants. There is no mass or organomegaly. EXT: Full painless ROM of all extremities with no loss of sensation or strength. SKIN: Warm, pink, and dry. No erythema or rash Initial Vital Signs Initial Vital Signs: Vital Signs Temperature 99.1 F 09/22/18 18:54 Pulse Rate 88 09/22/18 18:54 Respiratory Rate 22 09/22/18 18:54 Blood Pressure 140/85 09/22/18 18:54 Pulse Oximetry 98 09/22/18 18:54 Course Orders Ordered: ED Orders 09/22/18 21:00 Hemoglobin and Hematocrit Stat Vital Signs - 8 hr 09/22/18 21:56 Pulse Rate 85 Respiratory Rate 16 Blood Pressure [Left Arm] 126/77 Pulse Oximetry 100 MDM - OB/Uterine Contractions Lab Data Result diagrams: 09/22/18 21:00 Lab Results 09/22/18 Range/Units 21:00 Hgb 13.1 (12.0-16.0) g/dL Hct 39.9 (36-46) % [facility] Narrative Medical decision making narrative: 28-year-old female, known with 2nd visit. Her symptoms are rather mild and there is no indication of significant hemorrhage, need for transfusion or D&C. Repeat H&H is stable if not improved. Pelvic exam deferred as patient as use the restroom and states she is not even bleeding anymore. She has an upcoming appointment with her doctors on Saturday. She has been given extensive return precautions which she clearly understands. Questions answered to their apparent satisfaction Discharge Plan Departure Patient Disposition: Home Clinical Impression: Vaginal bleeding Discharge Date/Time: 09/22/18 21:56 Interventions: ED Discharge Assessment Last Done: 09/22/18 21:56 Instructions: DI for Vaginal Bleeding During Activity Restrictions/Additional Instructions: *You have been diagnosed with [ acute vaginal bleeding in ] *What to do: *Take medications as directed *Follow up with your primary care provider in 2-3 days, call for an appointment. Let them know you were seen in the Emergency Department and that we ask that you be seen in follow up *Return to ER if you should have any new, worsening or concerning symptoms If you develops bleeding which is heavy enough to saturate a pad per hour for more than 1 hour this would prompt a return Prescriptions: No Action PNV cmb#95-ferrous fumarate-FA [] 28 mg iron- 800 mcg Tablet 1 tab PO DAILY RF: 0
== END 2018-09-22 21:56 | disposition home or self-care (01) ==
PROVIDERS: Emergency Provider Emergency Medicine
DX: O20.9 Hemorrhage in early pregnancy, unspecified (principal); Z3A.01 Less than 8 weeks gestation of pregnancy
CPT/HCPCS: 36415; 85014; 85018

== ENCOUNTER → 2018-09-24 10:08 | Outpatient (CLI) | payer OTHER, MEDICAID, SELFPAY ==
[2018-09-24 12:21] LABS: HCG Quantitative /Beta subunit 6.03 mIU/mL
== END ==
PROVIDERS: Visit Provider Obstetrics & Gynecology
DX: O20.0 Threatened abortion (principal)
CPT/HCPCS: 36415; 84702

== ENCOUNTER → 2018-12-22 13:49 | Outpatient (CLI) | payer OTHER, MEDICAID, SELFPAY ==
[2018-12-22 16:01] LABS: HCG Quantitative /Beta subunit 228.68 mIU/mL
== END ==
PROVIDERS: PCP Nurse Practitioner Family; Visit Provider Obstetrics & Gynecology
DX: N91.2 Amenorrhea, unspecified (principal)
CPT/HCPCS: 36415; 84702

== ENCOUNTER → 2018-12-24 15:07 | Outpatient (CLI) | payer OTHER, MEDICAID, SELFPAY | PROVIDERS: Visit Provider Obstetrics & Gynecology | DX: N91.2 Amenorrhea, unspecified (principal) | CPT/HCPCS: 36415; 84702 ==

== ENCOUNTER 2018-12-27 12:10 | Emergency (ER) | payer OTHER, MEDICAID, SELFPAY ==
[2018-12-27 12:14] VITALS: BP 126/86; PULSE 85; RESP 18; TEMP 36.4; O2SAT 99; BMI 44.6
--- NOTE | 2018-12-27 13:23 | DI.US.S_ITS ---
PROCEDURE: US OB <= 14 WEEKS FETUS INDICATIONS: SPOTTING X DAYS OUTSIDE/PRIOR DATING DATA: Last menstrual period (LMP): 11/15/18. LMP-based estimated date of delivery (ANG): 08/22/19. First dating scan (date and location): 12/27/18, [facility]. Estimated date of delivery (ANG) from first dating scan: 08/27/19. TECHNIQUE: Real-time scanning was performed of the fetus and maternal pelvic organs, with image documentation. Endovaginal scanning was also performed to better visualize the fetus and maternal ovaries. COMPARISON: None from this . FINDINGS: Embryo: There is an intrauterine gestational sac seen, with a mean gestational sac size 0.6 cm, which corresponds to an estimated gestational age of 5 weeks 2 days. A pole cannot be seen at this time. Measurement variability in dating: +/- 4 weeks by LMP, +/- 7 days by mean sac diameter (use before 6 weeks gestation if crown-rump length not able to be measured), +/- 5 days by crown-rump length (up to 8 weeks 6 days gestation), +/- 7 days by crown-rump length (up to 13 weeks 6 days gestation). Maternal organs: The right ovary is unremarkable. The left ovary is not seen. No adnexal masses can be seen. Limited images through the kidneys demonstrate no hydronephrosis. IMPRESSION: There is an intrauterine gestational sac seen, without a pole seen at this time. No significant discrepancy is found between the estimated gestational age based on these images and the estimated gestational age based upon the given date of the last menstrual period. Close clinical followup, with serial beta-hCG and serial ultrasound are recommended, as clinically appropriate. Dictated by: Chaparro Lewis M.D. on 12/27/2018 at 13:04 Approved by: Chaparro Lewis M.D. on 12/27/2018 at 13:06
[2018-12-27 13:36] LABS: Add Manual Diff / Slide Review NO; Basophils Absolute Auto 0 /uL (0-100); Basophils Percent Auto 0.5 % (0-2); Eosinophils Absolute Auto 100 /uL (0-450); Eosinophils Percent Auto 1.2 % (2-4); Hematocrit 38.3 % (36-46); Hemoglobin 12.8 g/dL (12.0-16.0); Lymphocytes Absolute Auto 2400 /uL (1100-4500); Lymphocytes Percent Auto 28.7 % (25-40); Mean Corpuscular HGB Conc 33.4 % (30-36); Mean Corpuscular Hemoglobin 28.9 PG (26-34); Mean Corpuscular Volume 86.4 fL (80-100); Monocytes Absolute Auto 600 /uL (0-900); Monocytes Percent Auto 6.8 % (3-14); Neutrophils Absolute Auto 5200 /uL (1500-7000); Neutrophils Percent Auto 62.8 % (50-75); Platelet Count 206 X10^3/uL (150-400); Red Blood Cell Count 4.43 X10^6/uL (4.0-5.2); Red Cell Distribution Width 13.2 % (11.6-14.8); White Blood Cell Count 8.3 X10^3/uL (4.5-11.0)
--- NOTE | 2018-12-27 13:47 | ED_ITS ---
HPI - <Aniya LINO Hamilton - Last Filed: 12/27/18 20:27> General Chief complaint: Vaginal Bleeding Stated complaint: 6/7 weeks spotting/ passed out Time Seen by Provider: 12/27/18 12:11 Source: patient Mode of arrival: Ambulatory Limitations: no limitations History of Present Illness HPI Narrative: 28-year-old female , presents emergency department complaining of spotting and cramping for the past 3 days, she states she believes she is currently 7 weeks . This morning while she was making a she felt a sudden onset of extreme nausea and dizziness and stated she slid down to the ground and passed out for a few seconds. She states her children witnessed the episode and reported she was only passed out for a few seconds. She reports she recently had a miscarriage a few months ago and has not been seen by an OB for this at this point. Patient states the spotting decreased yesterday but has remained about the same today. She denies profuse vaginal bleeding, clots, abdominal pain, vomiting, diarrhea, dizziness at this time, chest pain, shortness of breath, diaphoresis, seizures, vision changes, or other concerns. Patient states she recently stopped using marijuana about 5 days ago is wondering if some of the nausea is caused from that. Related Data Home Medications Medication Instructions Recorded Confirmed PNV cmb#95-ferrous fumarate-FA 1 tab PO DAILY 09/22/18 12/27/18 [] Allergies Allergy/AdvReac Type Severity Reaction Status Date / Time No Known Drug Allergies Allergy Verified 12/27/18 12:18 Review of Systems <LINO Blanton - Last Filed: 12/27/18 20:27> Review of Systems Narrative: REVIEW OF SYSTEMS: GENERAL: Denies fever, chills, malaise, or wt. loss. HENT: No head trauma, sore throat, or dysphagia. EYES: No loss of vision, double vision, eye pain, or irritation. CARDIOVASCULAR: No chest pain, palpitations, or orthopnea. RESPIRATORY: No shortness of breath or cough. GASTROINTESTINAL: Denies vomiting. GENITOURINARY: No flank pain, urinary incontinence, hesitancy, frequency, or dysuria. Reports vaginal spotting, is currently . No vaginal discharge or dyspareunia. Denies concerns for STIs. See HPI. MUSCULOSKELETAL: No pain, weakness, or trauma. INTEGUMENTARY: No rash, lesions, or pruritus. NEURO: No numbness, tingling, memory loss, confusion, or headaches. PSYCH: No behavior or mood changes. PMFSH - <LINO Blanton - Last Filed: 12/27/18 20:27> Past Medical History Surgical history: Reports Family History Family history: Reports non-contributory Exam <LINO Blanton - Last Filed: 12/27/18 20:27> Narrative Exam Narrative: PHYSICAL EXAMINATION: GENERAL: Well groomed, alert, and cooperative. Answers questions promptly and appropriately. Vital signs noted. HENT: Normocephalic, atraumatic. Hearing intact. Oral mucosa is pink and moist. EYES: Conjunctiva pink, sclera white, no periorbital swelling. CARDIOVASCULAR: S1 and S2 sounds normal. Regular rate and rhythm, no murmurs, clicks, or bruits. No pedal edema. RESPIRATORY: Normal respiratory rate, trachea midline, airway patent. No stridor, nasal flaring or accessory muscle use. Lungs are clear in all lea without wheeze, rhonchi, or crackles. GASTROINTESTINAL: Bowel sounds normoactive. Abdomen is soft and non-tender. No organomegaly, no palpable masses. GENITALURINARY: No flank tenderness. MUSCULOSKELETAL: Normal gait and coordination. Equal tone and mass bilaterally. EXTREMITIES: CMS intact, no pedal edema. SKIN: Warm, dry, soft, appropriate color for ethnicity. No lesions, rashes, or wounds. NEURO: Alert and Oriented X 3. Good coordination. No ataxia, or sensory deficits, or cognitive issues. PSYCH: Appropriate affect and mood. Initial Vital Signs Initial Vital Signs: Vital Signs Temperature 97.6 F 12/27/18 12:14 Pulse Rate 85 12/27/18 12:14 Respiratory Rate 18 12/27/18 12:14 Blood Pressure 126/86 12/27/18 12:14 Pulse Oximetry 99 12/27/18 12:14 <Indira Townsend DO - Last Filed: 12/28/18 07:36> Initial Vital Signs Initial Vital Signs: Vital Signs Temperature 97.6 F 12/27/18 12:14 Pulse Rate 85 12/27/18 12:14 Respiratory Rate 18 12/27/18 12:14 Blood Pressure 126/86 12/27/18 12:14 Pulse Oximetry 99 12/27/18 12:14 Course <LINO Blanton - Last Filed: 12/27/18 20:27> Course Course Narrative: Patient continued to deny symptoms throughout her emergency department stay. Patient was able to ambulate without feelings of dizziness or increased nausea. Patient remained hemodynamically stable. Less likely cardiac due to lack of symptoms such as chest pain, shortness of breath, irregular rhythm, or concerning EKG changes. Patient was on cardiac monitoring throughout the emergency department stay and no abnormalities or ectopy you were reported. Less likely syncopal episode due to anemia as patient's H&H remain in normal limits. It is also possible that pains increased nausea and syncopal episode could be due to cessation of marijuana usage which she has discontinued over the past 5 days. It is possible that patient spotting could be due to a threatened or a variant of normal . Explained to patient that is reassuring that her HCG levels have increased over the past few days. However, due to spotting and a recommended she repeat her HCG levels and ultrasound in 48 hours to confirm the viability of . Little concern for ectopic as gestational sac was visualized in the uterus feel ultrasound. Orders Ordered: ED Orders 12/27/18 12:59 EKG-12 Lead Stat 12/27/18 13:23 US OB <= 14 weeks fetus Stat 12/27/18 13:25 ABO RH Type Stat Complete Blood Count AUTO DIFF Stat Comprehensive Metabolic Panel Stat HCG Quantitative Stat Consultations Consultation #1: Patient was staffed with Dr. Townsend. Vital Signs Vital signs: Vital Signs - 8 hr 12/27/18 14:58 Pulse Rate 88 Respiratory Rate 18 Pulse Oximetry 98 <Indira Townsend DO - Last Filed: 12/28/18 07:36> Orders Ordered: ED Orders 12/27/18 12:59 EKG-12 Lead Stat 12/27/18 13:23 US OB <= 14 weeks fetus Stat 12/27/18 13:25 ABO RH Type Stat Complete Blood Count AUTO DIFF Stat Comprehensive Metabolic Panel Stat HCG Quantitative Stat Vital Signs Vital signs: Vital Signs - 8 hr 12/27/18 14:58 Pulse Rate 88 Respiratory Rate 18 Pulse Oximetry 98 MDM - OB/Uterine Contractions <LINO Blanton - Last Filed: 12/27/18 20:27> Medical Records Attestation: I reviewed the patient's medical records. Lab Data Attestation: I reviewed the patient's lab results. Result diagrams: 12/27/18 13:25 12/27/18 13:25 Labs: Lab Results 12/27/18 12/27/18 12/27/18 Range/Units 13:25 13:25 13:25 WBC 8.3 (4.5-11.0) X10^3/uL RBC 4.43 (4.0-5.2) X10^6/uL Hgb 12.8 (12.0-16.0) g/dL Hct 38.3 (36-46) % MCV 86.4 (80-100) fL MCH 28.9 (26-34) PG MCHC 33.4 (30-36) % RDW 13.2 (11.6-14.8) % Plt Count 206 (150-400) X10^3/uL Neut % (Auto) 62.8 (50-75) % Lymph % (Auto) 28.7 (25-40) % [place] % (Auto) 6.8 (3-14) % Eos % (Auto) 1.2 L (2-4) % Baso % (Auto) 0.5 (0-2) % Neut # (Auto) 5200 (7645-0831) /uL Lymph # (Auto) 2400 (5977-6112) /uL [place] # (Auto) 600 (0-900) /uL Eos # (Auto) 100 (0-450) /uL Baso # (Auto) 0 (0-100) /uL Sodium 137 (137-145) mmol/L Potassium 4.3 (3.4-5.1) mmol/L Chloride 105 (98-107) mmol/L Carbon Dioxide 25 (22-32) mmol/L BUN 10 (7-17) mg/dL Creatinine 0.50 L (0.52-1.04) mg/dL Estimated GFR > 60.0 (>60) mL/min BUN/Creatinine Ratio 20.0 (6-22) Glucose 89 (70-100) mg/dL Calcium 9.3 (8.4-10.2) mg/dL Total Bilirubin 0.2 (0.2-1.3) mg/dL AST 30 (14-36) IU/L ALT 34 (<35) IU/L Alkaline Phosphatase 64 (38-126) U/L Total Protein 7.1 (6.3-8.2) g/dL Albumin 4.3 (3.5-5.0) g/dL Globulin 2.8 (1.7-4.1) g/dL Albumin/Globulin Ratio 1.5 (1.0-2.8) HCG, Quant 2526.0 mIU/mL Blood Type B Positive Point of Care Testing Test Results Positive Urine Dip Bedside Urine Glucose Negative Bedside Urine Bilirubin - Negative Bedside Urine Ketone - Negative Urine Specific [place] 1.025 Bedside Urine Occult Blood - Negative Bedside Urine pH 6.0 Bedside Urine Protein - Negative Bedside Urine Urobilinogen - Negative Bedside Urine Nitrite - Negative Bedside Urine Leukocytes - Negative Esterase Imaging Data OB ultrasound : Radiologist's impression: [address] [address] Ultrasound Report Signed Patient: Leandra Zhang LMR#: [id number] : 1990Acct:[id number] Age/Sex: te of Service: 12/27/18 Loc: ED Accession Number: [id number] Procedure: US OB <= 14 weeks fetus Ordering Provider: Aniya Hamilton PROCEDURE: US OB <= 14 WEEKS FETUS INDICATIONS: SPOTTING X DAYS OUTSIDE/PRIOR DATING DATA: Last menstrual period (LMP): 11/15/18. LMP-based estimated date of delivery (ANG): 08/22/19. First dating scan (date and location): 12/27/18, [facility]. Estimated date of delivery (ANG) from first dating scan: 08/27/19. TECHNIQUE: Real-time scanning was performed of the fetus and maternal pelvic organs, with image documentation. Endovaginal scanning was also performed to better visualize the fetus and maternal ovaries. COMPARISON: None from this . FINDINGS: Embryo: There is an intrauterine gestational sac seen, with a mean gestational sac size 0.6 cm, which corresponds to an estimated gestational age of 5 weeks 2 days. A pole cannot be seen at this time. Measurement variability in dating: +/- 4 weeks by LMP, +/- 7 days by mean sac diameter (use before 6 weeks gestation if crown-rump length not able to be measured), +/- 5 days by crown-rump length (up to 8 weeks 6 days gestation), +/- 7 days by crown-rump length (up to 13 weeks 6 days gestation). Maternal organs: The right ovary is unremarkable. The left ovary is not seen. No adnexal masses can be seen. Limited images through the kidneys demonstrate no hydronephrosis. IMPRESSION: There is an intrauterine gestational sac seen, without a pole seen at this time. No significant discrepancy is found between the estimated gestational age based on these images and the estimated gestational age based upon the given date of the last menstrual period. Close clinical followup, with serial beta-hCG and serial ultrasound are recommended, as clinically appropriate. Dictated by: Chaparro Lewis M.D. on 12/27/2018 at 13:04 Approved by: Chaparro Lewis M.D. on 12/27/2018 at 13:06 ECG Data Interpretation: Normal sinus rhythm, rate 86, NH interval 140, QTC 404. No ST elevation or ST depression. T-wave inversion noted to lead III. No ectopy. MDM Narrative Medical decision making narrative: I suspect patient's episode of syncope was due to a vagal response from nausea. Less likely <Indira Townsend DO - Last Filed: 12/28/18 07:36> Lab Data Labs: Lab Results 12/27/18 12/27/18 12/27/18 Range/Units 13:25 13:25 13:25 WBC 8.3 (4.5-11.0) X10^3/uL RBC 4.43 (4.0-5.2) X10^6/uL Hgb 12.8 (12.0-16.0) g/dL Hct 38.3 (36-46) % MCV 86.4 (80-100) fL MCH 28.9 (26-34) PG MCHC 33.4 (30-36) % RDW 13.2 (11.6-14.8) % Plt Count 206 (150-400) X10^3/uL Neut % (Auto) 62.8 (50-75) % Lymph % (Auto) 28.7 (25-40) % [place] % (Auto) 6.8 (3-14) % Eos % (Auto) 1.2 L (2-4) % Baso % (Auto) 0.5 (0-2) % Neut # (Auto) 5200 (4987-4304) /uL Lymph # (Auto) 2400 (6379-7718) /uL [place] # (Auto) 600 (0-900) /uL Eos # (Auto) 100 (0-450) /uL Baso # (Auto) 0 (0-100) /uL Sodium 137 (137-145) mmol/L Potassium 4.3 (3.4-5.1) mmol/L Chloride 105 (98-107) mmol/L Carbon Dioxide 25 (22-32) mmol/L BUN 10 (7-17) mg/dL Creatinine 0.50 L (0.52-1.04) mg/dL Estimated GFR > 60.0 (>60) mL/min BUN/Creatinine Ratio 20.0 (6-22) Glucose 89 (70-100) mg/dL Calcium 9.3 (8.4-10.2) mg/dL Total Bilirubin 0.2 (0.2-1.3) mg/dL AST 30 (14-36) IU/L ALT 34 (<35) IU/L Alkaline Phosphatase 64 (38-126) U/L Total Protein 7.1 (6.3-8.2) g/dL Albumin 4.3 (3.5-5.0) g/dL Globulin 2.8 (1.7-4.1) g/dL Albumin/Globulin Ratio 1.5 (1.0-2.8) HCG, Quant 2526.0 mIU/mL Blood Type B Positive Point of Care Testing Test Results Positive Urine Dip Bedside Urine Glucose Negative Bedside Urine Bilirubin - Negative Bedside Urine Ketone - Negative Urine Specific [place] 1.025 Bedside Urine Occult Blood - Negative Bedside Urine pH 6.0 Bedside Urine Protein - Negative Bedside Urine Urobilinogen - Negative Bedside Urine Nitrite - Negative Bedside Urine Leukocytes - Negative Esterase Discharge Plan Departure Patient Disposition: Home Clinical Impression: Miscarriage, threatened, early Discharge Date/Time: 12/27/18 14:58 Instructions: DI for Vaginal Bleeding During Activity Restrictions/Additional Instructions: Thank you for entrusting me with your care today. As discussed, your HCG levels today (12/27/2018) were 2526.0, on 12/24/2018 your HCG levels were 644.0. Her ultrasound showed a gestational sac without a pole. I recommend following up with OB to have a repeat HCG level and/or ultrasound if indicated in 48 hours to help confirm viability of your has spotting can be concerning. Return emergency department if you develop worsening symptoms such as severe abdominal cramping, syncope, chest pain, or shortness of breath. Prescriptions: No Action PNV cmb#95-ferrous fumarate-FA [] 28 mg iron- 800 mcg Tablet 1 tab PO DAILY RF: 0 Referrals: Celine Claros MD [Primary Care Provider] - Stand Alone Forms: Work Release Note
[2018-12-27 13:48] LABS: Alanine Aminotransferase 34 IU/L (<35); Albumin 4.3 g/dL (3.5-5.0); Albumin Globulin Ratio 1.5 (1.0-2.8); Alkaline Phosphatase 64 U/L (38-126); Aspartate Aminotransferase 30 IU/L (14-36); Bilirubin Total 0.2 mg/dL (0.2-1.3); Blood Urea Nitrogen 10 mg/dL (7-17); Calcium 9.3 mg/dL (8.4-10.2); Carbon Dioxide 25 mmol/L (22-32); Chloride 105 mmol/L (98-107); Estimated Glomerular Filt Rate > 60.0 mL/min (>60); Globulin 2.8 g/dL (1.7-4.1); Glucose 89 mg/dL (70-100); HEMOLYSIS < 15 (0-50); Potassium 4.3 mmol/L (3.4-5.1); Sodium 137 mmol/L (137-145); Total Protein 7.1 g/dL (6.3-8.2)
[2018-12-27 14:58] VITALS: PULSE 88; RESP 18; O2SAT 98
== END 2018-12-27 14:58 | disposition home or self-care (01) ==
PROVIDERS: Emergency Medicine; Emergency Provider Nurse Practitioner; Family Provider Obstetrics & Gynecology
DX: O20.0 Threatened abortion (principal); Z3A.08 8 weeks gestation of pregnancy
CPT/HCPCS: 76801; 76817; 80053; 81003; 81025; 84702; 85025; 86900; 86901; 93005; 93010; 99282; 99285

== ENCOUNTER → 2019-01-05 14:42 | Outpatient (CLI) | payer OTHER, MEDICAID, SELFPAY ==
[2019-01-05 16:49] LABS: HCG Quantitative /Beta subunit 34422 mIU/mL
== END ==
PROVIDERS: Visit Provider Obstetrics & Gynecology
DX: O20.0 Threatened abortion (principal); O20.9 Hemorrhage in early pregnancy, unspecified
CPT/HCPCS: 36415; 84702

== ENCOUNTER → 2019-01-09 18:34 | Outpatient (ROUT) | payer OTHER, MEDICAID, SELFPAY ==
[2019-01-09 20:10] LABS: Urine N gonorrhoeae NOT DETECTED
[2019-01-12 09:21] LABS: Urine Chlamydia DETECTED
== END ==
PROVIDERS: Visit Provider Obstetrics & Gynecology
DX: Z34.81 Encounter for supervision of other normal pregnancy, first trimester (principal)
CPT/HCPCS: 87491; 87591

== ENCOUNTER → 2019-01-28 14:19 | Outpatient (CLI) | payer OTHER, MEDICAID, SELFPAY ==
[2019-01-28 16:44] LABS: Urine N gonorrhoeae NOT DETECTED
[2019-01-28 16:45] LABS: Urine Chlamydia NOT DETECTED
== END ==
PROVIDERS: PCP Obstetrics & Gynecology; Visit Provider Obstetrics & Gynecology
DX: O98.811 Other maternal infectious and parasitic diseases complicating pregnancy, first trimester (principal); Z34.91 Encounter for supervision of normal pregnancy, unspecified, first trimester; A74.9 Chlamydial infection, unspecified
CPT/HCPCS: 87491; 87591

== ENCOUNTER → 2019-02-25 14:47 | Outpatient (CLI) | payer OTHER, MEDICAID, SELFPAY ==
[2019-02-25 15:25] LABS: Add Manual Diff / Slide Review NO; Basophils Absolute Auto 100 /uL (0-100); Basophils Percent Auto 0.7 % (0-2); Eosinophils Absolute Auto 100 /uL (0-450); Eosinophils Percent Auto 0.8 % (2-4); Hematocrit 37.3 % (36-46); Hemoglobin 12.9 g/dL (12.0-16.0); Lymphocytes Absolute Auto 1900 /uL (1100-4500); Lymphocytes Percent Auto 19.9 % (25-40); Mean Corpuscular HGB Conc 34.5 % (30-36); Mean Corpuscular Hemoglobin 29.2 PG (26-34); Mean Corpuscular Volume 84.7 fL (80-100); Monocytes Absolute Auto 500 /uL (0-900); Neutrophils Absolute Auto 7000 /uL (1500-7000); Neutrophils Percent Auto 73.6 % (50-75); Platelet Count 184 X10^3/uL (150-400); Red Blood Cell Count 4.41 X10^6/uL (4.0-5.2); Red Cell Distribution Width 12.8 % (11.6-14.8); White Blood Cell Count 9.5 X10^3/uL (4.5-11.0)
[2019-02-25 16:51] LABS: Hepatitis B Surface Antigen NEGATIVE s/c (NEGATIVE); Rubella Antibody IgG 9.3 IU/mL (>15)
[2019-02-25 16:59] LABS: HIV 1 & 2 Ab/Ag 4th Gen Combo NEGATIVE (NEGATIVE); Hep C Virus Ab w/Reflex Quant NEGATIVE s/c (NEGATIVE)
[2019-02-27 20:58] LABS: RPR Screen Nonreactive (Nonreactive)
[2019-03-02 16:22] LABS: Varicella IgG Antibody < 135.00 Index (< 135.00)
== END ==
PROVIDERS: PCP Obstetrics & Gynecology; Visit Provider Family Medicine
DX: Z34.81 Encounter for supervision of other normal pregnancy, first trimester (principal); Z3A.10 10 weeks gestation of pregnancy
CPT/HCPCS: 36415; 80055; 86787; 86803; 86850; 86900; 86901; 87389

== ENCOUNTER → 2019-04-09 07:03 | Outpatient (CLI) | payer OTHER, MEDICAID, SELFPAY ==
--- NOTE | 2019-04-09 07:04 | DI.US.S_ITS ---
PROCEDURE: US OB >= 14 WEEKS FETUS INDICATIONS: ANATOMIC SURVEY OUTSIDE/PRIOR DATING DATA: Last menstrual period (LMP): 11/15/18. LMP-based estimated date of delivery (ANG): 08/22/19. First dating scan (date and location): 12/27/18, [facility]. Estimated date of delivery (ANG) from first dating scan: 08/27/19.. TECHNIQUE: Real-time scanning was performed of the fetus, with image documentation and biometric measurements. COMPARISON: [facility], , OB >= 14 WEEKS FETUS, 09/30/2018, 13:56. FINDINGS: General: A single living intrauterine gestation is present. Presentation: Vertex. Placenta: Placental position is anterior, without previa. Amniotic fluid index: 16.3 cm, normal range is 5-24 cm. heart rate: 143 beats per minute. Maternal cervical canal: 4.4 cm long. Normal lower limit is 2.5 cm. biometrics: Biparietal diameter: 19 weeks 5 days Head circumference: 20 weeks Abdominal circumference: 20 weeks 2 days Femur length: 20 weeks 5 days Estimated gestational age from initial scan: 20 weeks Composite gestational age from present scan: 20 week 1 day Estimated weight and percentile: 351 g; 60 percentile Measurement variability for biometric dating: +/- 7 days from 14 weeks to 15 weeks 6 days gestation, +/- 10 days from 16 weeks to 21 weeks 6 days gestation, +/- 2 weeks from 22 weeks to 27 weeks 6 days gestation, +/- 3 weeks for 28 weeks gestation or later. weight reference: 4500 g or EFW >90/95% is considered macrosomia or large for gestational age. EFW <10% is small for gestational age. EFW 5% or less is considered intra-uterine growth restriction. Anatomic survey: Neuro: Ventricles are non-dilated at less than 10 mm. Cisterna magna is normal at 3-11 mm. Cerebellum is normal in size and morphology. Nuchal skin fold: Normal at less than 6 mm between 14-21 weeks gestational age. Face: Nose and lips, facial profile are normal. Spine: No evidence for spina bifida. Heart: 4-chambered heart is present, with normal ventricular outflow tracts. Diaphragm: Diaphragm is intact. Stomach: Left-sided stomach is present. Kidneys: No hydronephrosis. Normal is less than 5 mm in 2nd trimester, less than 7 mm in 3rd trimester. Cord: 3-vessel cord has orthotopic insertion. Bladder: Normal in size. Extremities: All 4 extremities identified. IMPRESSION: 1. Single living IUP redemonstrated and interval growth is normal. 2. Normal anatomic survey. Dictated by: Francisco Downs [facility] Interpreted: Jayesh Mccormick MD on 04/09/2019 at 9:20 Approved by: Jayesh Mccormick M.D. on 04/09/2019 at 13:58
== END ==
PROVIDERS: PCP Obstetrics & Gynecology; Referring Provider Family Medicine; Visit Provider Family Medicine
DX: Z34.82 Encounter for supervision of other normal pregnancy, second trimester (principal); Z3A.20 20 weeks gestation of pregnancy
CPT/HCPCS: 76811

== ENCOUNTER → 2019-05-05 12:45 | Outpatient (CLI) | payer OTHER, MEDICAID, SELFPAY ==
[2019-05-05 13:13] LABS: UR Morphine/Opiate cutoff 300 Negative (Negative); Ur Creatinine Normal (Normal); Ur Specific Gravity Normal (Normal); Urine Amphetamines Negative (Negative); Urine Barbiturates Negative (Negative); Urine Benzodiazepines Negative (Negative); Urine Cocaine Negative (Negative); Urine MDMA Negative (Negative); Urine Methadone Negative (Negative); Urine Methamphetamines Negative (Negative); Urine Oxycodone Negative (Negative); Urine Phencyclidine Negative (Negative); Urine Tetrahydrocannabinol Positive (Negative); Urine Tricyclic Antidepressant Negative (Negative); Urine pH Normal (Normal)
[2019-05-05 14:22] LABS: Urine Chlamydia NOT DETECTED; Urine N gonorrhoeae NOT DETECTED
== END ==
PROVIDERS: PCP Obstetrics & Gynecology; Visit Provider Family Medicine
DX: Z11.3 Encounter for screening for infections with a predominantly sexual mode of transmission (principal); Z11.8 Encounter for screening for other infectious and parasitic diseases; Z34.82 Encounter for supervision of other normal pregnancy, second trimester; Z87.898 Personal history of other specified conditions
CPT/HCPCS: 80305; 87491; 87591

== ENCOUNTER → 2019-05-11 11:59 | Outpatient (CLI) | payer OTHER, MEDICAID, SELFPAY ==
[2019-05-11 12:56] LABS: Hematocrit 37.8 % (36-46); Hemoglobin 12.6 g/dL (12.0-16.0)
== END ==
PROVIDERS: PCP Obstetrics & Gynecology; Referring Provider Family Medicine; Visit Provider Family Medicine
DX: Z34.90 Encounter for supervision of normal pregnancy, unspecified, unspecified trimester (principal)
CPT/HCPCS: 36415; 85014; 85018

== ENCOUNTER → 2019-06-29 09:03 | Outpatient (CLI) | payer OTHER, MEDICAID, SELFPAY ==
[2019-06-29 16:22] LABS: Urine N gonorrhoeae NOT DETECTED
[2019-06-29 16:24] LABS: Urine Chlamydia NOT DETECTED
== END ==
PROVIDERS: Visit Provider Family Medicine
DX: Z11.3 Encounter for screening for infections with a predominantly sexual mode of transmission (principal); Z11.8 Encounter for screening for other infectious and parasitic diseases
CPT/HCPCS: 87491; 87591

== ENCOUNTER → 2019-07-28 09:27 | Outpatient (CLI) | payer OTHER, MEDICAID, SELFPAY ==
[2019-07-29 18:48] LABS: Strep Grp B PCR POS for Grp B Strep
== END ==
PROVIDERS: Visit Provider Family Medicine
DX: Z34.83 Encounter for supervision of other normal pregnancy, third trimester (principal); Z3A.36 36 weeks gestation of pregnancy
CPT/HCPCS: 87653

== ENCOUNTER → 2019-08-18 14:22 | Outpatient (CLI) | payer OTHER, MEDICAID, SELFPAY ==
[2019-08-19 19:47] LABS: COVID19 Sendout Not Detected (Not Detect)
== END ==
PROVIDERS: Visit Provider Physician Assistant
DX: Z01.812 Encounter for preprocedural laboratory examination (principal)
CPT/HCPCS: 87635

== ENCOUNTER 2019-08-20 06:07 | Inpatient (IN) | payer OTHER, MEDICAID, SELFPAY ==
[2019-08-20 06:54] LABS: Add Manual Diff / Slide Review NO; Basophils Absolute Auto 100 /uL (0-100); Basophils Percent Auto 0.9 % (0-2); Eosinophils Absolute Auto 100 /uL (0-450); Eosinophils Percent Auto 0.8 % (2-4); Hematocrit 37.3 % (36-46); Hemoglobin 12.8 g/dL (12.0-16.0); Lymphocytes Absolute Auto 2100 /uL (1100-4500); Lymphocytes Percent Auto 16.6 % (25-40); Mean Corpuscular HGB Conc 34.3 % (30-36); Mean Corpuscular Hemoglobin 29.3 PG (26-34); Mean Corpuscular Volume 85.3 fL (80-100); Monocytes Absolute Auto 700 /uL (0-900); Monocytes Percent Auto 5.8 % (3-14); Neutrophils Absolute Auto 9800 /uL (1500-7000); Neutrophils Percent Auto 75.9 % (50-75); Platelet Count 161 X10^3/uL (150-400); Red Blood Cell Count 4.37 X10^6/uL (4.0-5.2); Red Cell Distribution Width 14.5 % (11.6-14.8); White Blood Cell Count 12.9 X10^3/uL (4.5-11.0)
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
--- NOTE | 2019-08-20 07:22 | SUR.OPER ---
Supine on Padded OR bed, head on pillow, safety belt at thigh, arms secured on padded arm boards at <90 degrees abduction. Bump under right buttock. Legs uncrossed with pillow under knees, gel pad to heels, tape over blanket to lower legs.
[2019-08-20] MEDS: LACTATED RINGERS 1,000 ML 42 ML IV (07:48)
[2019-08-20] MEDS: CEFAZOLIN 2 GM/100 ML FROZ.PIGGY IV (08:07)
[2019-08-20] MEDS: ACETAMINOPHEN IV 1,000 MG/100 ML VIAL 400 MG IV (08:35)
--- NOTE | 2019-08-20 08:36 | SUR.OPER ---
Viable male delivered at 08:27. Cord blood vials x2 and placenta sent with L&D RN.
--- NOTE | 2019-08-20 09:13 | PM.PROC.1 ---
Procedures Date/Time Date of procedure: 08/20/19 Time of procedure: 09:13 General Procedure description: Procedure: Lower segment transverse section Consent: Verbal and written informed consent were obtained from the patient placed on the chart. Indications: 29-year-old G5 para 3 for repeat section Findings: Normal uterus normal ovaries Normal male infant Anesthesia: Spinal Surgeon: Dr. Álvaro Jade Publishing Director: Dr. Kandi Bedoya Estimated blood loss: 750 Drains: Ruvalcaba to gravity. IV fluids: 1800 Description of procedure: The patient was brought to the operating room after her spinal epidural, preparation, and Ruvalcaba had been performed. The abdomen was prepped and draped in tested for for analgesia. When it was found to be adequate, a lower abdominal Pfannenstiel incision was made with first with a knife and cared down to the fascia with a second knife. The fascia was incised in the midline and extended laterally with a knife. Bleeding points were clamped with hemostats and Bovie coagulated. The rectus muscles were by blunt dissection. The rectus muscles were divided in the midline and the peritoneum was grasped with hemostats and carefully entered with Prieto scissors. The incision was extended bilaterally. The bladder blade was then placed. The vesicoperitoneum was grasped with smooth pickups, entered with Metzenbaum scissors, and extended laterally. The bladder flap was created by gently blunt dissection and placed behind the bladder blade. The lower uterine segment was noted to be thin was carefully incised with the scalpel and extended laterally with the fingers. A live infant was found to be in the vertex position. The head was then easily elevated with the hand. The baby was then suctioned and cried immediately, and was handed to the waiting attendant. The placenta was delivered manually. The uterus was explored with a wet lap sponge and found to be clear membranes. The first layer of the uterine closure was with running locking #1 chromic catgut suture. The second layer with an imbricating #1 chromic catgut suture. Hemostasis was carefully checked and found to be satisfactory. After fundal massage Pitocin and a dose of Hemabate. The bladder flap was closed with a running 2-0 chromic catgut suture. The fallopian tubes and ovaries were inspected and to be found normal bilaterally. After sponge and needle counts were found to be correct the peritoneum was closed with 2-0 chromic catgut suture. Rectus muscles were approximated in the lower midline. The fascia was closed with a 2. 0 Vicryl from lateral to midline. The subcutaneous tissue was approximated with interrupted 2.0 plain gut. Bleeding points were Bovie and coagulated. The subcutaneous tissue was approximated with 2.0 plain gut suture. The skin was closed with 1-0 running subcuticular stitch. Urinary output was adequate and normal patient left to the recovery room in good condition. Complications: none
[2019-08-20 09:15] VITALS: BP 119/64; PULSE 86; RESP 14; TEMP 36.3; O2SAT 99
[2019-08-20 09:20] VITALS: BP 120/64; PULSE 85; RESP 13; O2SAT 100
[2019-08-20 09:25] VITALS: BP 123/62; PULSE 82; RESP 14; O2SAT 100
[2019-08-20 09:30] VITALS: BP 118/66; PULSE 88; RESP 14; O2SAT 100
[2019-08-20 09:35] VITALS: BP 120/72; PULSE 83; RESP 12; O2SAT 99
--- NOTE | 2019-08-20 09:50 | SUR.PHASEI ---
Patient arrivbed in PACU A/O x 4. Very excited about baby #4. Scant amount of red drainage to pad.
[2019-08-20] MEDS: LACTATED RINGERS 1,000 ML 100 ML IV (10:03)
[2019-08-20] MEDS: diphenhydrAMINE 50 MG/ML VIAL ×2 (11:50→18:20)
[2019-08-20] MEDS: KETOROLAC 30 MG/ML VIAL IV ×2 (12:16→18:25)
[2019-08-20] MEDS: OXYCODONE/ACETAMINOPHEN 5/325 TABLET 2 TAB PO ×2 (13:59→22:58)
[2019-08-20] MEDS: BUTORPHANOL 1 MG/ML VIAL 0.5 MG IV (20:43)
[2019-08-21] MEDS: KETOROLAC 30 MG/ML VIAL IV ×2 (00:06→06:04)
[2019-08-21] MEDS: OXYCODONE/ACETAMINOPHEN 5/325 TABLET 2 TAB PO (05:10)
[2019-08-21 06:45] LABS: Add Manual Diff / Slide Review NO; Basophils Absolute Auto 100 /uL (0-100); Basophils Percent Auto 0.7 % (0-2); Eosinophils Absolute Auto 100 /uL (0-450); Eosinophils Percent Auto 1.1 % (2-4); Hematocrit 30.8 % (36-46); Hemoglobin 10.2 g/dL (12.0-16.0); Lymphocytes Absolute Auto 1800 /uL (1100-4500); Lymphocytes Percent Auto 13.5 % (25-40); Mean Corpuscular HGB Conc 33.2 % (30-36); Mean Corpuscular Hemoglobin 28.9 PG (26-34); Mean Corpuscular Volume 86.9 fL (80-100); Monocytes Absolute Auto 1100 /uL (0-900); Monocytes Percent Auto 7.9 % (3-14); Neutrophils Absolute Auto 10500 /uL (1500-7000); Neutrophils Percent Auto 76.8 % (50-75); Platelet Count 122 X10^3/uL (150-400); Red Blood Cell Count 3.54 X10^6/uL (4.0-5.2); Red Cell Distribution Width 14.2 % (11.6-14.8); White Blood Cell Count 13.6 X10^3/uL (4.5-11.0)
--- NOTE | 2019-08-21 08:26 | PM.PN.1 ---
Subjective Subjective Date Patient Seen: 08/21/19 Time Patient Seen: 08:26 Interval history: Patient seen and evaluated this morning. Doing well per nursing staff last night. Had some food tolerated that well. Is able to stand up at the bedside. Ruvalcaba catheter was room removed this morning. Vitals temp 98.1? blood pressure 125/76 pulse 102 respiratory rate 18. She would like to get a shower. Her pain is well controlled taking 1 Percocet still getting Toradol. Abdominal incisional pain looks good no significant incisional drainage. Vaginal bleeding as expected Exam Vital Signs (past 8 hours): Oxygen Delivery Method Room Air Narrative Exam Narrative: General: Alert no apparent distress. Affect is appropriate. HEENT: Neck is supple without lymphadenopathy pupils equal round and reactive. Cardio: S1-S2 regular rate and rhythm. Respiratory: Lungs clear to auscultation. Abdomen: Uterus firm. Incision clean dry and intact. Extremities: Normal deep tendon reflexes trace edema. Objective Labs Result Diagrams: 08/21/19 06:37 Labs: Laboratory Results - last 24 hr 08/21/19 06:37 WBC 13.6 H RBC 3.54 L Hgb 10.2 L Hct 30.8 L MCV 86.9 MCH 28.9 MCHC 33.2 RDW 14.2 Plt Count 122 L Neut % (Auto) 76.8 H Lymph % (Auto) 13.5 L Edmonson % (Auto) 7.9 Eos % (Auto) 1.1 L Baso % (Auto) 0.7 Neut # (Auto) 63633 H Lymph # (Auto) 1800 Edmonson # (Auto) 1100 H Eos # (Auto) 100 Baso # (Auto) 100 Assessment & Plan Assessment & Plan narrative: day 1. Status post repeat section mom is doing well. Ruvalcaba catheter SCDs removed she is ambulating. Tolerating diet pain well controlled vital signs are stable breast-feeding is going well. Continue with current care. We will go ahead and increase encouraged ambulation. Hemoglobin and hematocrit is stable.
[2019-08-21] MEDS: OXYCODONE/ACETAMINOPHEN 5/325 TABLET 1 TAB PO ×4 (08:53→19:48)
[2019-08-21] MEDS: DOCUSATE 250 MG CAPSULE PO (08:53)
[2019-08-21] MEDS: PRENATAL VIT,CALC/IRON/FOLIC 1 TABLET 1 TAB PO (08:53)
[2019-08-21] MEDS: IBUPROFEN 600 MG TABLET PO ×2 (12:40→18:24)
[2019-08-21 12:44] VITALS: TEMP 36.9
[2019-08-22] MEDS: OXYCODONE/ACETAMINOPHEN 5/325 TABLET 1 TAB PO ×2 (00:02→03:53)
[2019-08-22] MEDS: IBUPROFEN 600 MG TABLET PO ×2 (00:02→07:59)
[2019-08-22 07:00] VITALS: BP 120/72; PULSE 83; RESP 12; TEMP 36.9
[2019-08-22] MEDS: PRENATAL VIT,CALC/IRON/FOLIC 1 TABLET 1 TAB PO (07:59)
[2019-08-22] MEDS: DOCUSATE 250 MG CAPSULE PO (07:59)
[2019-08-22] MEDS: OXYCODONE/ACETAMINOPHEN 5/325 TABLET 2 TAB PO (08:00)
--- NOTE | 2019-08-22 09:04 | P.DS_ITS ---
History of Present Illness History of Present Illness Chief complaint: [id number] Discharge Providers Provider Date of admission: 08/20/19 06:07 Discharge Date: 08/22/19 Consults: 08/20/19 09:38 Consult to Lead Material Handler Routine Comment: Discharge provider: Álvaro Jade MD Summary Hospital Course Discharge Diagnosis: 29-year-old G5 now para 4 status post repeat section Routine post care Hospital Course: Patient admitted to the hospital for repeat section. Patient had without difficulty. Mild increased bleeding which was stopped with Pitocin and Hemabate. Hemoglobin hematocrit stable during her hospital stay and vital signs are stable. Post course patient 24 hours later was ambulating tolerating diet good urination and pain was well controlled. On the day of discharge. Patient was eating ambulating showering taking oral pain medication. Has some mild swelling. No shortness of breath mild incisional playing but no drainage and discharge. Good bladder and bowel function. Patient was asking to be discharged. Exam Vital Signs (past 8 hours): Oxygen Delivery Method Room Air Objective Labs Result Diagrams: 08/21/19 06:37 Discharge Plan Discharge Plan Patient Disposition: Home Discharge orders & Medications Prescriptions: New oxycodone-acetaminophen 5-325 mg Tablet 2 tab PO Q4HR PRN (Reason: Pain, Severe (7-10)) Qty: 30 RF: 0 ibuprofen 600 mg Tablet 600 mg PO Q6HR PRN (Reason: Fever/Mild Pain (1-3)) Qty: 30 RF: 0 docusate sodium 250 mg Capsule 250 mg PO DAILY Qty: 20 RF: 0 Prenatabs Rx 29 mg iron- 1 mg Tablet 1 tab PO DAILY Qty: 90 RF: 0 Continued albuterol sulfate [ProAir HFA] 90 mcg/actuation HFA aerosol inhaler 2 puff INHALATION Q4-6H PRN (Reason: shortness of breath or wheezing) Qty: 18 RF: 0 PNV [id number]-ferrous fumarate-FA [] 28 mg iron- 800 mcg Tablet 1 tab PO DAILY RF: 0 Visit Report/Discharge Packet Visit Report Forms: Patient Portal/API, Stroke Signs & Symptoms
== END 2019-08-22 12:05 | disposition home or self-care (01) | DRG 540 ==
PROVIDERS: Admitting Provider Family Medicine; Referring Provider Family Medicine; Visit Provider Family Medicine
PROC: 10D00Z1 Extraction of Products of Conception, Low, Open Approach (ICD-10-PCS; CPT 59514; principal; 2019-08-20 07:45)
DX: O34.211 Maternal care for low transverse scar from previous cesarean delivery (principal); Z3A.39 39 weeks gestation of pregnancy; Z37.0 Single live birth; O99.824 Streptococcus B carrier state complicating childbirth; F12.90 Cannabis use, unspecified, uncomplicated; O99.324 Drug use complicating childbirth; O98.32 Other infections with a predominantly sexual mode of transmission complicating childbirth; B00.9 Herpesviral infection, unspecified
CPT/HCPCS: 36415; 59050; 59514; 85025; 86850; 86900; 86901; J0131; J0595; J0690; J1200; J1885; J2274; J2405; J2590; J2704

== ENCOUNTER → 2020-01-06 09:03 | Outpatient (CLI) | payer OTHER, MEDICAID, SELFPAY ==
[2020-01-06 11:12] LABS: COVID19 -Nasal RAPID Negative (Negative)
== END ==
PROVIDERS: Visit Provider Physician Assistant
DX: Z11.59 Encounter for screening for other viral diseases (principal)
CPT/HCPCS: 87635

== ENCOUNTER → 2020-04-06 11:39 | Outpatient (CLI) | payer OTHER, MEDICAID, SELFPAY ==
[2020-04-06 13:35] LABS: Urine N gonorrhoeae NOT DETECTED
[2020-04-06 14:42] LABS: Urine Chlamydia NOT DETECTED
== END ==
PROVIDERS: Referring Provider Physician Assistant; Visit Provider Physician Assistant
DX: N89.8 Other specified noninflammatory disorders of vagina (principal)
CPT/HCPCS: 87210; 87491; 87591

== ENCOUNTER 2022-08-12 06:14 | Emergency (ER) | payer OTHER, MEDICAID, SELFPAY ==
[2022-08-12 06:21] VITALS: BP 141/85; PULSE 71; RESP 16; TEMP 37.1; O2SAT 100; BMI 43.7
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
== END 2022-08-12 07:33 | disposition home or self-care (01) ==
PROVIDERS: Emergency Provider Emergency Medicine
DX: O26.899 Other specified pregnancy related conditions, unspecified trimester (principal); K08.89 Other specified disorders of teeth and supporting structures
CPT/HCPCS: 99281

== ENCOUNTER → 2024-01-13 16:35 | Outpatient (CLI) | payer OTHER, MEDICAID, SELFPAY ==
[2024-01-13 17:20] LABS: Influenza A - CEPHEID Flu A NEGATIVE (NEGATIVE); Influenza B - CEPHEID Flu B NEGATIVE (NEGATIVE); Respiratory Syncytial Virus Negative (Negative)
[2024-01-13 17:42] LABS: COVID-19 CEPHEID 4-PLEX PCR Negative (Negative)
== END ==
PROVIDERS: Visit Provider Nurse Practitioner Family
DX: R68.83 Chills (without fever) (principal); R05.1 Acute cough
CPT/HCPCS: 87635; 87400; 87420; 0241U; 81002; 81025; 87086

== ENCOUNTER → 2024-03-29 12:32 | Outpatient (CLI) | payer OTHER, SELFPAY ==
[2024-03-29 13:17] LABS: Influenza A - CEPHEID Flu A NEGATIVE (NEGATIVE); Influenza B - CEPHEID Flu B POSITIVE (NEGATIVE); Respiratory Syncytial Virus Negative (Negative)
[2024-03-29 13:30] LABS: COVID-19 CEPHEID 4-PLEX PCR Negative (Negative)
== END ==
PROVIDERS: Visit Provider Nurse Practitioner Family
DX: R50.9 Fever, unspecified (principal); R52 Pain, unspecified
CPT/HCPCS: 87635; 87400; 87420; 0241U